=== PATIENT | male | born 1960 | race Hispanic/Latino ===

== ENCOUNTER 2019-10-18 18:32 | Inpatient (IN) | payer OTHER, SELFPAY ==
[2019-10-18] MEDS ORDERED: Morphine 4 MG/ML VIAL ONE (19:14)
[2019-10-18 19:32] LABS: #Basophils 0.1 thou/uL (0.0-0.2); #Eosinphils 0.2 thou/uL (0.0-0.7); #Lymphocytes 2.3 thou/uL (1.20-3.40); #Monocytes 0.8 thou/uL (0.11-0.59); #Neutrophils 7.7 thou/uL (1.40-6.50); %Basophils 0.7 % (0.0-1.0); %Eosinophils 1.9 % (0.0-10.0); %Lymphocytes 20.5 % (21.0-51.0); %Monocytes 6.8 % (0.0-10.0); %Neutrophils 70.2 % (42.0-75.0); Hemoglobin 16.9 g/dL (14.0-18.0); Mean Corpuscular HGB CONC 33.4 g/dL (32.0-36.0); Mean Corpuscular Hemoglobin 30.3 pg (27.0-31.0); Mean Corpuscular Volume 90.6 fL (78.0-98.0); Mean Platelet Volume 7.8 fL (7.4-10.4); Platelet Count 189 thou/uL (130-400); RBC Distribution Width 11.7 % (11.5-14.5); Red Blood Cell (RBC) Count 5.57 mill/uL (4.70-6.10)
[2019-10-18 19:41] LABS: INR-International Normal Ratio 0.9; Prothrombin Time 12.6 SEC (12.0-14.7)
[2019-10-18] MEDS ORDERED: Fentanyl 100 MCG/2 ML VIAL ONE (19:42)
[2019-10-18] MEDS ORDERED: Ondansetron PF 4 MG/2 ML Vial ONE (19:53)
[2019-10-18 19:55] LABS: ALT (SGPT) 19 U/L (8-55); AST (SGOT) 20 U/L (5-34); Albumin 4.9 g/dL (3.5-5.0); Alkaline Phosphatase 78 U/L (40-110); Anion Gap 13 mmol/L (10-20); BUN (Urea Nitrogen) 15 mg/dL (8.4-25.7); Bilirubin, Total 0.5 mg/dL (0.2-1.2); Calc. Creatinine Clearance 0 mL/min (70-130); Calcium 9.6 mg/dL (7.8-10.44); Carbon Dioxide 26 mmol/L (22-29); Chloride 102 mmol/L (98-107); Estimated GFR-MDRD 63; Globulin 3.2 g/dL (2.4-3.5); Glucose 106 mg/dL (70-105); Lipase 29 U/L (8-78); Potassium 3.2 mmol/L (3.5-5.1); Protein, Total 8.1 g/dL (6.0-8.3); Sodium 138 mmol/L (136-145)
[2019-10-18] MEDS ORDERED: Piperacillin/Tazobactam 4.5 GM VIAL ONE (19:58)
--- NOTE | 2019-10-18 20:11 | ULT ---
US Gallbladder RUQ History: Right upper quadrant pain Comparison: None. Findings: Real-time grayscale, color evaluation of the right upper quadrant of the abdomen was perfor med. Pancreas is not well seen. Aorta and IVC are not well interrogated. Diffuse increased hepatic echotex ture. There is cholelithiasis with gallbladder distention and pericholecystic fluid. Wall is mildly thicken ed. Common bile duct measures 8 mm. Right kidney measures 11.7 x 4.7 x 5 cm with a 1.9 cm interpolar simple cyst. Impression: 1. Gallbladder distention with stone in the neck and positive Lemus sign suggesting acute cholecysti tis. 2. Diffuse hepatic steatosis. 3. Mild dilatation of the common bile duct.
[2019-10-18] MEDS ORDERED: HYDROmorphone 0.5 MG/0.5 ML SYRINGE ONE (20:22)
[2019-10-18] MEDS ORDERED: Ondansetron ODT 4 MG TAB SL PRN (23:44)
[2019-10-18] MEDS ORDERED: Ondansetron PF 4 MG/2 ML Vial IVP PRN (23:44)
[2019-10-18] MEDS ORDERED: Lactated Ringer's 1,000 ML IV SCH (23:45)
[2019-10-18] MEDS ORDERED: Ketorolac Tromethamine 30 MG/ML VIAL IVP PRN (23:46)
[2019-10-18] MEDS ORDERED: Acetaminophen 1,000 MG in Premix Bag 1 BAG IVPB PRN (23:47)
[2019-10-18] MEDS ORDERED: HYDROcodone/Acetaminophen 5/325 mg Tablet PO PRN ×2 (23:48)
[2019-10-19] MEDS: Fentanyl 100 MCG/2 ML VIAL SLOW IVP PRN ×2 (00:12→03:39)
[2019-10-19 01:10] VITALS: BMI 29.0
[2019-10-19] MEDS ORDERED: Piperacillin/Tazobactam 4.5 GM in Sodium Chloride 0.9% 100 ML IVPB SCH (04:00)
--- NOTE | 2019-10-19 09:54 | HP ---
CHIEF COMPLAINT: Right upper quadrant pain. HISTORY OF PRESENT ILLNESS: This is a 59-year-old male with a history of hypothyroidism, who presents with a history of severe right upper quadrant pain, described as sharp, radiates around to the right back, associated with nausea, no vomiting. He had intractable pain last night, and was admitted to my service for acute cholecystitis. His bile duct is slightly dilated on the ultrasound, although his liver function tests are normal. His pain is actually improved this morning. He has had one previous episode of this pain. PAST MEDICAL HISTORY: Includes hypothyroidism. PAST SURGICAL HISTORY: Denies. MEDICINES: Thyroid. ALLERGIES: NO KNOWN DRUG ALLERGIES. SOCIAL HISTORY: No smoking, alcohol, or other drugs. REVIEW OF SYSTEMS: Ten-system review of systems is otherwise negative unless described above. PHYSICAL EXAMINATION: VITAL SIGNS: Blood pressure is 136/87, pulse 69, respirations 16, temperature 95. HEENT: Sclerae anicteric. Oropharynx, clear. NECK: No lymphadenopathy. CHEST: Clear. HEART: Regular rate and rhythm. ABDOMEN: Soft, tender in the right upper quadrant with localized guarding. No rebound. No abdominal hernias. EXTREMITIES: No ischemia or edema to extremities. LABORATORY DATA: White cell count is 11, hemoglobin is 16. Sodium 138, potassium 3.2, creatinine 1.19. Liver function test, normal. ASSESSMENT: Acute cholecystitis with minimally dilated common bile duct. PLAN: Laparoscopic cholecystectomy. Risks, benefits, and alternatives were discussed. He gives consent. We will do this today. Job ID: [id number]
[2019-10-19] MEDS ORDERED: Glycopyrrolate 0.2 MG/ML 5 ML SYRINGE ONE ×2 (10:00→16:12)
[2019-10-19] MEDS ORDERED: PROPOFOL 200 MG/20 ML VIAL ONE (10:00)
[2019-10-19] MEDS ORDERED: Rocuronium Bromide 10 MG/ML (10ML VIAL) ONE (10:00)
[2019-10-19] MEDS ORDERED: Ondansetron PF 4 MG/2 ML Vial ONE (10:00)
[2019-10-19] MEDS ORDERED: Morphine 2 MG/ML SYRINGE SLOW IVP PRN (10:22)
[2019-10-19] MEDS ORDERED: Fentanyl 100 MCG/2 ML VIAL ONE ×6 (11:40→16:49)
[2019-10-19] MEDS ORDERED: Midazolam HCl 2 mg/2 ml Vial ONE ×2 (11:40→14:46)
[2019-10-19] MEDS ORDERED: Promethazine HCl 25 MG/ML VIAL SLOW IVP PRN (13:38)
[2019-10-19] MEDS ORDERED: Ondansetron HCl/PF 4 MG/2 ML Vial IVP PRN (13:38)
[2019-10-19] MEDS ORDERED: Promethazine HCl 25 MG/ML VIAL IM PRN ×2 (13:38→17:08)
[2019-10-19] MEDS ORDERED: Piperacillin/Tazobactam 3.375 GM VIAL ONE (14:36)
[2019-10-19] MEDS ORDERED: Sodium Chloride 0.9% 100 ML ONE (14:37)
[2019-10-19] MEDS ORDERED: Labetalol HCl 100 MG/20 ML VIAL ONE (14:37)
[2019-10-19] MEDS ORDERED: Iothalamate Meglumine 60% 50 ML VIAL FS ONE (14:38)
[2019-10-19] MEDS ORDERED: Lidocaine 2% w/Epinephrine 1:200K 20 ML VIAL ONE (14:38)
--- NOTE | 2019-10-19 15:59 | RAD ---
XR Cholangiogram in Surgery History: Cholecystectomy Comparison: None. Findings: No diagnostic images were sent for review. Impression: Total fluoroscopy time: 28 seconds.
--- NOTE | 2019-10-19 16:08 | OP ---
DATE OF PROCEDURE: 10/19/2019 PREOPERATIVE DIAGNOSIS: Acute cholecystitis. POSTOPERATIVE DIAGNOSIS: Acute cholecystitis. PROCEDURE PERFORMED: Laparoscopic cholecystectomy with intraoperative cholangiogram, placed in a temporary intraabdominal drain. ANESTHESIA: General. ESTIMATED BLOOD LOSS: Minimal. COMPLICATIONS: None. SPECIMEN: Gallbladder. FINDINGS: Normal cholangiogram, but severe cholecystitis. DESCRIPTION OF PROCEDURE: The patient was taken to the operating room and laid supine on the operating room table. After general anesthetic was obtained, the abdomen was shaved, prepped, and draped in a sterile fashion. A curved incision was made below the umbilicus, cautery dissected down to and score the fascia. Abdominal cavity was entered bluntly using a Jalyn clamp. Holding stitch of PDS was placed on each side of the fascia. Malka trocar was placed. High-flow pneumoperitoneum was obtained. Upper midline 5 mm port and right upper quadrant 5 mm port were placed under direct visualization. Gallbladder was retracted from the gallbladder fossa. There was severe inflammatory changes. The gallbladder top was necrotic. It was grasped and placed up over the liver. The peritoneum was opened anteriorly and posteriorly. Critical view of triangle was seen, showing only the cystic duct and cystic artery branching medial to lateral. There were no other branching structures. A clip was placed on the cystic duct. A small ductotomy was made just proximal to that. A cholangiocatheter was brought in through a separate stab incision, placed in the cystic duct and cholangiogram was performed, which showed good contrast flow into the duodenum without obstruction. Cholangiocatheter was removed and 2 clips and a PDS Endoloop were used to ligate the cystic duct. Cystic artery was taken using 2 clips proximally and distally. It was cauterized. The gallbladder was dissected out the gallbladder fossa using cautery. Meticulous hemostasis was obtained in the liver bed. The gallbladder was placed in an Endo Catch bag and brought out through the Malka. A 19 round drain was brought out through the right upper quadrant 5 mm port site and left in the liver bed, sewn in place to the skin using silk. All port sites were infiltrated using local anesthetic. All port sites were infiltrated using local anesthetic. All ports were removed under camera visualization. Pneumoperitoneum was let down. PDS was used to close the fascia below the umbilicus. All incisions were irrigated and closed using 4-0 Monocryl and Dermabond. The patient was sent to Recovery in stable condition. All instrument counts, needle counts, and lap counts were correct. Job ID: [id number]
[2019-10-19] MEDS ORDERED: Calcium Carbonate 500 MG ChewTAB PO PRN (17:08)
[2019-10-19] MEDS ORDERED: Dextrose 50% Abboject 50 ML SYRINGE SLOW IVP PRN (17:08)
[2019-10-19] MEDS ORDERED: Dextrose 5% in Water 1,000 ML IV PRN (17:08)
[2019-10-19] MEDS ORDERED: Mag-Al 1200 mg/1200 mg/30 ML UDCUP PO PRN (17:08)
[2019-10-19] MEDS ORDERED: hydrALAZINE 20 MG/ML VIAL SLOW IVP PRN (17:08)
[2019-10-19] MEDS ORDERED: HYDROcodone/Acetaminophen 7.5/325 mg Tablet PO PRN (17:08)
[2019-10-19] MEDS ORDERED: Ondansetron PF 4 MG/2 ML Vial IVP PRN (17:08)
[2019-10-19] MEDS ORDERED: Morphine 4 MG/ML VIAL SLOW IVP PRN (17:08)
[2019-10-19] MEDS: D5 1/2 NS w/20 mEq KCL 1,000 ML IV SCH (17:40)
[2019-10-19] MEDS ORDERED: Piperacillin/Tazobactam 3.375 GM in Sodium Chloride 0.9% 100 ML IVPB SCH (18:00)
[2019-10-19] MEDS: Morphine 2 MG/ML SYRINGE SLOW IVP PRN (18:28)
[2019-10-19] MEDS: Piperacillin/Tazobactam 3.375 GM in Sodium Chloride 0.9% 100 ML IVPB SCH (21:00)
[2019-10-19] MEDS: Famotidine/PF 20 mg/2ml Vial SLOW IVP SCH (21:01)
[2019-10-19] MEDS: Famotidine 20 MG TAB PO SCH (21:35)
[2019-10-20] MEDS: HYDROcodone/Acetaminophen 7.5/325 mg Tablet PO PRN ×2 (00:38→08:06)
[2019-10-20] MEDS: D5 1/2 NS w/20 mEq KCL 1,000 ML IV SCH (02:23)
[2019-10-20] MEDS: Piperacillin/Tazobactam 3.375 GM in Sodium Chloride 0.9% 100 ML IVPB SCH ×2 (03:02→08:09)
[2019-10-20] MEDS: Morphine 2 MG/ML SYRINGE SLOW IVP PRN (05:51)
[2019-10-20 07:16] LABS: ALT (SGPT) 24 U/L (8-55); AST (SGOT) 23 U/L (5-34); Albumin 3.6 g/dL (3.5-5.0); Alkaline Phosphatase 43 U/L (40-110); Anion Gap 9 mmol/L (10-20); BUN (Urea Nitrogen) 14 mg/dL (8.4-25.7); Bilirubin, Total 1.1 mg/dL (0.2-1.2); Calc. Creatinine Clearance 91 mL/min (70-130); Calcium 8.3 mg/dL (7.8-10.44); Carbon Dioxide 25 mmol/L (22-29); Chloride 108 mmol/L (98-107); Estimated GFR-MDRD 65; Globulin 2.4 g/dL (2.4-3.5); Glucose 125 mg/dL (70-105); Potassium 4.1 mmol/L (3.5-5.1); Sodium 138 mmol/L (136-145)
[2019-10-20 07:47] VITALS: TEMP 98.1
[2019-10-20 08:06] LABS: Band 10 % (5-11); Hemoglobin 14.3 g/dL (14.0-18.0); Lymphocytes 2 % (21-51); MDiff Complete? YES; Mean Corpuscular HGB CONC 33.8 g/dL (32.0-36.0); Mean Corpuscular Hemoglobin 31.3 pg (27.0-31.0); Mean Corpuscular Volume 92.6 fL (78.0-98.0); Mean Platelet Volume 7.5 fL (7.4-10.4); Monocytes 7 % (0-10); Neutrophil 81 % (42-75); Platelet Count 157 thou/uL (130-400); RBC Distribution Width 11.7 % (11.5-14.5); Red Blood Cell (RBC) Count 4.57 mill/uL (4.70-6.10); White Blood Cell (WBC) Count 17.6 thou/uL (4.8-10.8)
[2019-10-20] MEDS: Famotidine 20 MG TAB PO SCH (08:08)
[2019-10-20] MEDS: Famotidine/PF 20 mg/2ml Vial SLOW IVP SCH (08:08)
--- NOTE | 2019-10-20 08:51 | PDOC.GSPN ---
Surgery Progress Note: Subj - Subjective Narrative: Mr. Ruvalcaba is a 59 year old male POD#1 following lap cholecystectomy with intraoperative cholangiogram. He is doing alright this morning other than some pain, which he describes as 7/10 on his right side surrounding the drainage site. The pain is worse when he inhales but is relieved some with pain medication. He has been tolerating regular diet and denies nausea, vomiting. He has not yet passed gas or had a BM. He has been voiding on his own without problems. He walked several laps in the [place] with PT this morning. He denies chest pain, shortness of breath. Surgery Progress Note: Obj - Vital signs Vital signs: Vital Signs - Most Recent Temp Pulse Resp BP Pulse Ox 98.1 F 66 16 120/74 96 10/20/19 07:47 10/20/19 07:47 10/20/19 07:47 10/20/19 07:47 10/20/19 07:47 - Physical Exam General: moderate pain Cardiovascular: regular rate and rhythm Respiratory: clear to auscultation Abdomen: soft, nondistended, positive bowel sounds, appropriately tender Wound: healing well, drainage (temporary intraabdominal drain in place, draining sanguinous fluid) Surgery Progress Note: Results - Labs Result Diagrams: 10/20/19 06:25 10/20/19 06:25 Lab results: Laboratory Results - last 24 hr 10/20/19 10/20/19 06:25 06:25 WBC 17.6 H RBC 4.57 L Hgb 14.3 Hct 42.3 MCV 92.6 MCH 31.3 H MCHC 33.8 RDW 11.7 Plt Count 157 MPV 7.5 Neutrophils % (Manual) 81 H Band Neuts % (Manual) 10 Lymphocytes % (Manual) 2 L Monocytes % (Manual) 7 Sodium 138 Potassium 4.1 Chloride 108 H Carbon Dioxide 25 Anion Gap 9 L BUN 14 Creatinine 1.16 Estimated GFR (MDRD) 65 Glucose 125 H Calcium 8.3 Total Bilirubin 1.1 AST 23 ALT 24 Alkaline Phosphatase 43 Serum Total Protein 6.0 Albumin 3.6 Globulin 2.4 Albumin/Globulin Ratio 1.5 Surgery Progress Note: A/P - Plan Plan: Mr. Ruvalcaba is a 59 year old male POD#1 following lap cholecystectomy with intraoperative cholangiogram. 1. Positive bowel sounds. Tolerating regular diet without nausea, vomiting. Continue regular diet as tolerated. 2. Fluid today appears sanguineous. Continue to monitor fluid drainage. 3. Patient describes pain at drainage site. Continue pain medication. 4. Encourage ambulation with PT
[2019-10-20 11:38] VITALS: BP 110/71
== END 2019-10-20 14:04 | disposition home or self-care (01) | DRG 419 ==
LOC: ERS 18:32 → SURG B 23:34
PROVIDERS: ADMIT Surgery; ATTEND Surgery
PROC: 0FT44ZZ Resection of Gallbladder, Percutaneous Endoscopic Approach (ICD-10-PCS; principal; 2019-10-19)
PROC: BF111ZZ Fluoroscopy of Biliary and Pancreatic Ducts using Low Osmolar Contrast (ICD-10-PCS; 2019-10-19)
DX: K81.0 Acute cholecystitis (principal); E03.9 Hypothyroidism, unspecified; I10 Essential (primary) hypertension; K83.8 Other specified diseases of biliary tract
CPT/HCPCS: 36415; 47532; 76705; 80053; 83690; 84484; 85025; 85610; 88304; 93005; J0131; J1170; J2250; J2270; J2405; J2543; J2704; J3010; J3490; S0028

== ENCOUNTER 2021-12-27 19:30 | Emergency (ER) | payer BC ==
[2021-12-27 20:14] LABS: #Basophils 0.1 thou/uL (0.0-0.2); #Eosinphils 0.1 thou/uL (0.0-0.7); #Lymphocytes 2.1 thou/uL (1.20-3.40); #Monocytes 0.9 thou/uL (0.11-0.59); #Neutrophils 5.6 thou/uL (1.40-6.50); %Basophils 0.8 % (0.0-1.0); %Eosinophils 0.7 % (0.0-10.0); %Neutrophils 64.6 % (42.0-75.0); Hemoglobin 17.4 g/dL (14.0-18.0); Mean Corpuscular HGB CONC 33.2 g/dL (32.0-36.0); Mean Corpuscular Hemoglobin 31.1 pg (27.0-31.0); Mean Corpuscular Volume 93.4 fL (78.0-98.0); Mean Platelet Volume 7.2 fL (7.4-10.4); Platelet Count 185 thou/uL (130-400); RBC Distribution Width 12.1 % (11.5-14.5); White Blood Cell (WBC) Count 8.6 thou/uL (4.8-10.8)
[2021-12-27 20:36] LABS: ALT (SGPT) 34 U/L (8-55); AST (SGOT) 33 U/L (5-34); Albumin 4.2 g/dL (3.5-5.0); Alkaline Phosphatase 61 U/L (40-110); Anion Gap 13 mmol/L (10-20); BUN (Urea Nitrogen) 17 mg/dL (8.4-25.7); Bilirubin, Total 0.8 mg/dL (0.2-1.2); Calc. Creatinine Clearance 0 mL/min (70-130); Calcium 9.3 mg/dL (7.8-10.44); Carbon Dioxide 23 mmol/L (22-29); Chloride 104 mmol/L (98-107); Globulin 3.5 g/dL (2.4-3.5); Glucose 86 mg/dL (70-105); Lipase 25 U/L (8-78); Potassium 4.3 mmol/L (3.5-5.1); Protein, Total 7.7 g/dL (6.0-8.3); Sodium 136 mmol/L (136-145)
[2021-12-27] MEDS ORDERED: Morphine 4 MG/ML VIAL ONE (20:36)
[2021-12-27] MEDS ORDERED: Ketorolac Tromethamine 30 MG/ML VIAL ONE (20:36)
[2021-12-27 21:15] LABS: Bilirubin Negative (Negative); Blood, Urine Negative (Negative); Clarity Clear (Clear); Glucose, Urine (Dipstick) Normal (Negative); Ketone, Urine Negative (Negative); Leukocyte Negative Leu/uL (Negative); Nitrite Negative (Negative); Protein, Urine (Dipstick) Negative (Neg-Trace); Specific Gravity, Urine 1.008 (1.002-1.036); Urobilinogen Normal mg/dL (Less than 2)
== END 2021-12-27 21:35 | disposition home or self-care (01) ==
LOC: ERS 19:30
DX: M54.16 Radiculopathy, lumbar region (principal); E03.9 Hypothyroidism, unspecified; I10 Essential (primary) hypertension; E78.5 Hyperlipidemia, unspecified; Z79.899 Other long term (current) drug therapy
CPT/HCPCS: 74176; 80053; 81003; 83690; 85025; 96374; 96375; J1885; J2270